=== PATIENT | female | born 1955 | race Caucasian/White ===

== ENCOUNTER 2016-12-26 04:59 | Day surgery (SDC) | payer OTHER ==
[2016-12-22 17:39] VITALS: BMI 32.4
[2016-12-26] MEDS ORDERED: ACETAMINOPHEN INJECTION 100 ML IVPB ONE (09:35)
[2016-12-26] MEDS ORDERED: PROPOFOL 20 ML ONE (09:39)
[2016-12-26] MEDS ORDERED: MIDAZOLAM HCL 2 MG/2 ML SINGLE DOSE VIAL ONE (09:40)
[2016-12-26] MEDS ORDERED: ROCURONIUM BROMIDE 50 MG/5 ML VIAL ONE (09:40)
--- NOTE | 2016-12-26 09:40 | HP ---
Past Medical History - Primary Care Physician PCP:: Harris Arias - Admission Chief Complaint: 61yo postmenopausal female with enlarging right adnexal mass 6cm, admitted for laparoscopic right salpingoophorectomy. History of Present Illness: Prior postmenopausal bleeding that resolved and EMB was negative. Enlarging right adnexal mass. No pain, no weight changes, no or GI symptoms. History Source: Patient, Medical Record Limitations to Obtaining History: No Limitations - Past Medical History PROFESSOR OF ENGLISH: No: Alzheimer's, CVA, Dementia, Migraine, Multiple Sclerosis, Peripheral Neuropathy, Parkinson's, Seizure, Syncope, TIA, Vertigo, Other Cardiovascular: Yes: HTN Pulmonary: No: Asthma, Bronchitis, Cancer, COPD, O2 Dependent, Pneumonia, Previously Intubated, Pulmonary Embolus, Pulmonary Fibrosis, Sleep Apnea, Other Gastrointestinal: No: Ascites, Cancer, Constipation, Crohn's Disease, Diverticulitis, Diverticulosis, Esophageal Varices, Gastritis, GERD, GI Bleed, Hemorrhoids, Hiatal Hernia, Inflamatory Bowel Disease, Irritable Bowel Disease, Pancreatitis, Peptic Ulcer Disease, Ulcerative Colitis, Other Hepatobiliary: No: Cirrhosis, Cholelithiasis, Cholecystitis, Choledocholithiasis , Hepatitis A, Hepatitis B, Hepatitis C, Other Renal/: No: Renal Failure, Renal Inusuff, BPH, Cancer, Hematuria, Hemodialysis , Neurogenic Bladder, Renal Calculi, UTI, Other Reproductive: No: Ectopic , Endometriosis, Fibroids, PID, Polycystic Ovary Syndrome, Postmenopausal, Other ...Para: 2 Heme/Onc: No: Anemia, B12 Deficiency, Bleeding Disorder, Cancer, Current Chemotherapy, Current Radiation Therapy, Hemochromatosis, Hypercoaguable State, Myeloproliferative Synd, Sickle Cell Disease, Sickle Cell Trait, Thrombocytopenia, Other Infectious Disease: No: AIDS, C-Diff, Herpes Zoster, HIV, MRSA, STD's, Tuberculosis, VREF, Other Psych: No: Addictions, Anxiety, Bipolar, Depression, Panic, Psychosis, Schizophrenia, Other Musculoskeletal: No: Bursitis, Chronic low back pain, Hemiparesis, Hemiplegia, Osteoarthritis, Paraplegia, Other Rheumatology: No: Fibromyalgia, Gout, Lupus, Rheumatoid Arthritis, Sarcoidosis, Vasculitis, Other Endocrine: No: Kade's Disease, [place]'s Disease, Diabetes Insipidus, Diabetes Mellitus, Hyperparathyroidism, Hyperthyroidism, Hypothyroidism, Osteopenia, SIADH, Other Dermatology: No: Basal Cell, Cellulitis, Eczema, Melanoma, Psoriasis, Squamous Cell, Other - Past Surgical History Past Surgical History: Yes: Appendectomy Hx Myomectomy: No Hx Transabdominal Cerclage: No Additional Surgical History: Left forearm fracture - Smoking History Smoking history: Never smoked Have you smoked in the past 12 months: No - Alcohol/Substance Use Hx Alcohol Use: No History of Substance Use: reports: None - Social History Usual Living Arrangement: Yes: Alone ADL: Independent History of Recent Travel: No Other Social History: undocumented ailien resident Home Medications - Allergies Allergies/Adverse Reactions: Allergies Allergy/AdvReac Type Severity Reaction Status Date / Time No Known Drug Allergies Allergy Verified 12/22/16 17:50 - Home Medications Home Medications: Ambulatory Orders Enalapril Maleate 10 mg PO PRN PRN 12/22/16 Family Disease History - Family Disease History Family History: Denies Review of Systems - Review of Systems Constitutional: reports: No Symptoms Eyes: reports: No Symptoms HENT: reports: No Symptoms Neck: reports: No Symptoms Cardiovascular: reports: No Symptoms Respiratory: reports: No Symptoms Gastrointestinal: reports: No Symptoms Genitourinary: reports: No Symptoms Breasts: reports: No Symptoms Reported Musculoskeletal: reports: No Symptoms Integumentary: reports: No Symptoms Neurological: reports: No Symptoms Endocrine: reports: No Symptoms Hematology/Lymphatic: reports: No Symptoms Psychiatric: reports: No Symptoms Physical Exam-FLIGHT OPERATIONS SPECIALIST Vital Signs: Vital Signs Temperature 98.3 F 12/26/16 08:20 Pulse Rate 85 12/26/16 08:20 Respiratory Rate 20 12/26/16 08:20 Blood Pressure 152/96 12/26/16 08:20 O2 Sat by Pulse Oximetry (%) 97 12/26/16 08:20 Constitutional: Yes: Well Nourished, No Distress, Calm Eyes: Yes: WNL, Conjunctiva Clear HENT: Yes: WNL, Atraumatic, Normocephalic Neck: Yes: WNL, Supple, Trachea Midline Cardiovascular: Yes: WNL, Regular Rate and Rhythm Respiratory: Yes: WNL, Regular, CTA Bilaterally Gastrointestinal: Yes: Normal Bowel Sounds, Soft, Abdomen, Obese ...Rectal Exam: Yes: WNL Renal/: Yes: WNL External Genitalia: Yes: Normal Internal Exam Deferred: No Vaginal Exam: Yes: Normal Cervix: Yes: Normal Uterus: Yes: Normal Adnexa: Normal: Left, Mass: Right Musculoskeletal: Yes: WNL Extremities: Yes: WNL Edema: No Integumentary: Yes: WNL Neurological: Yes: WNL, Alert, Oriented ...Motor Strength: WNL Psychiatric: Yes: WNL, Alert, Oriented Imaging - Results Ultrasound: Report Reviewed Assessment/Plan 61yo postmenopausal female with enlarging right adnexal mass 6cm, admitted for laparoscopic right salpingoophorectomy. We had discussed the risks, benefits, alternatives of surgery at length including but not limited to infection, bleeding, scarring, perforation, hysterectomy, injury to surrounding/ underlying organs or structure, need for additional surgery to repair/treat any complications, etc. The patient verbalized understanding and requested to proceed with surgery. I emphasized that all surgeries have risks and no guarantees can be provided.
[2016-12-26] MEDS ORDERED: ceFAZolin SODIUM 1 GM VIAL IVPB ONE (10:20)
[2016-12-26] MEDS ORDERED: GLYCOPYRROLATE 0.2 MG/1 ML VIAL ONE (10:42)
[2016-12-26] MEDS ORDERED: NEOSTIGMINE METHYLSULFATE 0.5 MG/ML - 10 ML MDV ONE (10:42)
[2016-12-26] MEDS ORDERED: BUPIVACAINE HCL/PF 0.5% (5MG/ML) 10 ML VIAL ONE (10:52)
[2016-12-26] MEDS ORDERED: ONDANSETRON 4 MG/2 ML VIAL ONE (10:54)
[2016-12-26] MEDS ORDERED: PROMETHAZINE HCL 25 MG/1 ML VIAL IVPUSH PRN (11:29)
[2016-12-26] MEDS ORDERED: ONDANSETRON 4 MG/2 ML VIAL IVPUSH PRN (11:29)
[2016-12-26] MEDS ORDERED: oxyCODONE HCL 5 MG TABLET PO PRN (11:29)
[2016-12-26] MEDS ORDERED: LACTATED RINGERS SOLUTION 1,000 ML IV SCH (11:30)
[2016-12-26] MEDS ORDERED: IBUPROFEN 600 MG TABLET (FP) PO PRN (11:32)
[2016-12-26] MEDS ORDERED: ACETAMINOPHEN 325 MG TABLET (FP) PO PRN (11:32)
--- NOTE | 2016-12-26 11:32 | OP ---
Operative Note - Note: Operative Date: 12/26/16 Pre-Operative Diagnosis: Right adnexal mass Operation: Laparoscopic right salpingoophorectomy Findings: 1. enlarged right ovary containing a cystic mass with clear straw-colored fluid 2. Posterior uterine myoma 3. left ovary and tube are normal, stomach, gallbladder, liver, bowel appear normal. Post-Operative Diagnosis: Same as Pre-op Surgeon: Harris Arias Senior Marketing Data Analyst: Perri Hernandez Anesthesiologist/DEV MANAGER: Grey Cadena Anesthesia: General Specimens Removed: Right fallopian tube and ovary/mass Estimated Blood Loss (mls): 5 Drains & Tubes with Location: Pollack Cath Drains, Volume Out (mls): 600 Blood Volume Replaced (mls): 0 Fluid Volume Replaced (mls): 1,000 Operative Report Dictated: Yes
[2016-12-26] MEDS ORDERED: oxyCODONE HCL 5 MG TABLET ONE (13:19)
[2016-12-26 16:08] VITALS: PULSE 64
[2016-12-26 18:23] VITALS: BP 120/70; TEMP 97.8
--- NOTE | 2016-12-27 11:57 | OP ---
DATE OF OPERATION: 12/26/2016 PREOPERATIVE DIAGNOSIS: Right adnexal mass. POSTOPERATIVE DIAGNOSES: Right cystic ovarian mass, posterior uterine fibroid. SURGEON: Harris Arias MD ASSISTANT DIRECTOR OF SECURITY: Perri Hernandez MD INDICATIONS FOR ASSISTANT DIRECTOR OF SECURITY: The presence of a surgical specialist was necessary and critical for the safe performance of the surgery and due to patient's comorbidities. PROCEDURE: Laparoscopic right salpingo-oophorectomy. PATHOLOGY: Right fallopian tube, right ovary and ovarian mass, cystic fluid for cytology. FINDINGS: Examination under anesthesia revealed a small anteverted uterus. No pelvic or adnexal masses were palpable. Laparoscopy revealed a normal left fallopian tube and ovary, normal right fallopian tube. The right ovary was markedly enlarged. The ovary and capsule were smooth. The visualized portions of the bowel, stomach, gallbladder, liver were normal. The uterus contained a small posterior fibroid. The right ovarian mass was found to be cystic and contained clear, straw-colored fluid. DESCRIPTION OF PROCEDURE: The patient was met preoperatively. Risks, benefits, and alternatives of surgery were discussed in details. All questions were answered. The risks of surgery were explained including, but not limited to, infection, bleeding, scarring, injury to underlying organs or structures, need for an open laparotomy, need for additional surgery to repair or treat any complications or unexpected intraoperative findings. The patient verbalized her understanding and requested to proceed with the surgery. The patient was then brought to the OR with the IV running. She was placed on a surgical table in the supine position. The general endotracheal anesthesia was achieved without difficulties. The patient was then placed in a dorsal lithotomy position using adjustable Wu stirrups. The patient was examined under anesthesia with the findings as described above. The timeout procedure was then conducted as per standard protocol. The patient was then prepped and draped in the usual sterile fashion. A Pollack catheter was introduced inside the bladder and left to drain to gravity. A HUMI uterine manipulator was introduced inside the uterus with the sterile technique. The surgeons then re-gloved and proceeded with the laparoscopy part of the procedure. A 5-mm intraumbilical incision was made with a knife. A 5-mm trocar was inserted through that incision without complications. Prior to the insertion of the umbilical trocar, pneumoperitoneum was produced using CO2 gas through the Veress needle. Atraumatic placement of the umbilical trocar was confirmed by using an Optiview trocar. A second 5-mm incision was then made in the left lower quadrant, and another 5-mm trocar was inserted under direct laparoscopic visualization without complications. A 10-mm incision was then made in the left lower quadrant, and a 10-mm trocar was inserted under direct visualization. A LigaSure device was then used to excise the right fallopian tube and the right ovary with the ovarian cystic mass. The right fallopian tube was removed separately, followed by the right ovary with the cystic mass. The right ovary and the cystic mass were placed inside the Endo Catch bag. Once inside the Endo Catch bag, the specimen was brought to the surface. The Endo Catch bag was then opened, and the fluid inside the cystic mass was aspirated. Once the cystic mass collapsed, it was easily removed using the Endo Catch through the 10-mm incision. The tissue was sent to Pathology for examination, and the fluid was sent to Cytology. The 10-mm incision was then closed using a 2-0 Vicryl suture for the fascia. The skin incisions were all closed using a 4-0 Biosyn suture with good approximation and hemostasis. The pneumoperitoneum was reduced. Next, 0.5% Marcaine was used for local anesthesia at the incision sites. The Pollack catheter and HUMI were removed. The patient was returned to supine position, the general anesthesia was reversed, and the patient was transferred to recovery room in stable condition and awake. Niall [id number]
--- NOTE | 2016-12-27 13:56 | PATH ---
Surgical Pathology Report Patient Name: BRENT DELATORRE [facility]. Rec. #: [id number] /Age/Gender: 1955 (Age: 61) / M Account: [id number] Location: [facility] Taken: 12/26/2016 Received: 12/26/2016 Reported: 12/27/2016 Physicians: Harris Arias M.D. Specimen(s) Received A: RIGHT FALLOPIAN TUBE B: RIGHT OVARY/MASS Clinical History Right adnexal mass Right ovarian cystic mass Final Diagnosis A. FALLOPIAN TUBE, RIGHT SALPINGECTOMY: BENIGN FALLOPIAN TUBE WIT FOCAL FIBRINOHEMORRHAGIC ADHESIONS. B. OVARY/MASS, RIGHT, OOPHORECTOMY: OVARY WITH BENIGN SEROUS CYSTADENOMA. Electronically Signed Frank Horvath M.D. Gross Description A. Received in formalin, labeled "right fallopian tube" is a 7 cm in length and 0.4 cm in diameter fimbriated fallopian tube. The outer surface is carlson-pink. Sectioning reveals a pinpoint lumen. Restaurant Kitchen Manager sections are submitted in one cassette. B. Received in formalin, labeled "right ovary and mass" is a 5 x 5 x 1 cm focally disrupted collapsed cystic structure. The outer surfaces carlson-white and smooth. The inner lining is carlson-white, smooth without excrescences. Residual ovary is focally identified. Restaurant Kitchen Manager sections are submitted in three cassettes. AF/12/26/2016 final/12/26/2016
--- NOTE | 2016-12-27 14:01 | PATH ---
Cytology Non-Gynecological Report Patient Name: BRENT DELATORRE [facility]. Rec. #: [id number] /Age/Gender: 1955 (Age: 61) / M Account: [id number] Location: [facility] Taken: 12/26/2016 Received: 12/26/2016 Reported: 12/27/2016 Physicians: Harris Arias M.D. Specimen(s) Received RIGHT OVARIAN CYST FLUID Clinical History Right adnexal mass Final Diagnosis OVARIAN CYST FLUID, RIGHT: SATISFACTORY FOR EVALUATION. NO MALIGNANT CELLS IDENTIFIED. BENIGN APPEARING CYST LINING CELLS, INFLAMMATORY CELLS AND PROTEINACEOUS MATERIAL. Comment: Refer to [id number] for the surgical pathology results. Electronically Signed Frank Horvath M.D. Gross Description Received is 500 cc of bloody in color fluid fresh. One cytofunnel slide and one cell block are made.
== END 2016-12-26 16:00 | disposition home or self-care (01) ==
LOC: EDSEX → JASU-SURG 04:59
PROVIDERS: ATTEND Obstetrics & Gynecology
PROC: 0UB54ZZ Excision of Right Fallopian Tube, Percutaneous Endoscopic Approach (ICD-10-PCS; 2016-12-26)
PROC: 0UB04ZZ Excision of Right Ovary, Percutaneous Endoscopic Approach (ICD-10-PCS; principal; 2016-12-26 09:00)
DX: N83.201 Unspecified ovarian cyst, right side (principal); D25.9 Leiomyoma of uterus, unspecified
CPT/HCPCS: 86850; 86900; 86901; 88108; 88305-TC; 88307-TC; 94760